=== PATIENT | female | born 1945 | race Caucasian/White ===

== ENCOUNTER → 2016-12-24 | Outpatient (CLI) | payer MEDICARE ==
[2016-12-24 10:23] LABS: CH 33.2; HCT 41.2 % (34.0-46.0); HDW 2.34; HGB 14.3 gm/dL (11.4-16.0); MCHC 34.7 g/dL (31.0-37.0); MCV 95.1 fL (80.0-100.0); RBC 4.33 m/uL (3.80-5.40); RDW 12.5 % (11.5-15.5); WBC 5.7 k/uL (3.8-10.6)
[2016-12-24 10:57] LABS: ALT 55 U/L (9-52); AST 40 U/L (14-36); Alkaline Phosphatase 68 U/L (38-126); Anion Gap 11 mmol/L; Blood Urea Nitrogen 23 mg/dL (7-17); Calcium 9.8 mg/dL (8.4-10.2); Carbon Dioxide 28 mmol/L (22-30); Chloride 101 mmol/L (98-107); Cholesterol 217 mg/dL (<200); Glucose 100 mg/dL (74-99); HDL Cholesterol 61 mg/dL (40-60); Non-African American GFR(MDRD) >60 (>60 ml/min/1.73 sqM); Potassium 4.3 mmol/L (3.5-5.1); Sodium 140 mmol/L (137-145); Total Bilirubin 0.9 mg/dL (0.2-1.3); Total Protein 6.9 g/dL (6.3-8.2); Triglycerides 217 mg/dL (<150)
== END | disposition home or self-care (01) ==
LOC: LABWHC1 09:51
PROVIDERS: ATTEND Internal Medicine
DX: Z00.00 Encounter for general adult medical examination without abnormal findings (principal); I10 Essential (primary) hypertension; E03.9 Hypothyroidism, unspecified; E78.00 Pure hypercholesterolemia, unspecified
CPT/HCPCS: 36415; 80053; 80061; 84439; 84443; 85027

== ENCOUNTER → 2017-01-08 | Outpatient (CLI) | payer MEDICARE ==
--- NOTE | 2017-01-08 16:06 | US ---
EXAMINATION TYPE: US thyroid st tissue head/neck DATE OF EXAM: 01/08/2017 COMPARISON: Ultrasound 12/31/2015 CLINICAL HISTORY: E03.9 Hypothyroidism Unspecified. Left thyroidectomy; c/o difficulty swallowing GLAND SIZE: Right Lobe: 3.7 x 1.6 x 1.0 cm Overall Parenchyma: homogenous Left Lobe: surgically removed Isthmus Thickness: 0.2 cm NODULES RIGHT: # of nodules measured on right: 3 largest of multiple 1. 0.4 X 0.4 x 0.1 cm hypoechoic mixed nodule at the upper pole with well-defined margins; interrup mo peripheral calcification. This nodule is wider than tall and shows no intranodular vascularity. Prior size: 0.4 x 0.3 x 0.4 cm 2. 0.2 X 0.3 x 0.1 cm hypoechoic cystic nodule at the mid pole with well-defined margins. This nodu le is wider than tall and shows no intranodular vascularity. Prior size: 0.3 x 0.2 x 0.3 cm 3. 0.7 X 0.8 x 0.4 cm hypoechoic mixed nodule at the lower pole with well-defined margins; present w ith microcalcifications. This nodule is wider than tall and shows no intranodular vascularity. Prior size: 0.6 x 0.4 x 0.9 cm LEFT: # of nodules measured on left: 0 post thyroidectomy ISTHMUS: # of nodules measured in the isthmus: 0 Bilateral neck scanned, no evidence of lymphadenopathy. IMPRESSION: 1. Stable subcentimeter right lobe thyroid nodules. 2. Status post left thyroid lobectomy
== END | disposition home or self-care (01) ==
LOC: RADUSWWP 14:54
PROVIDERS: ATTEND Internal Medicine Endocrinology, Diabetes & Metabolism
DX: E04.2 Nontoxic multinodular goiter (principal); E89.0 Postprocedural hypothyroidism
CPT/HCPCS: 76536

== ENCOUNTER → 2017-12-17 | Outpatient (CLI) | payer MEDICARE ==
[2017-12-17 12:20] LABS: T4, Free (Free Thyroxine) 1.74 ng/dL (0.78-2.19)
== END | disposition home or self-care (01) ==
LOC: LABWHC1 11:39
PROVIDERS: ATTEND Internal Medicine Endocrinology, Diabetes & Metabolism
DX: E03.9 Hypothyroidism, unspecified (principal)
CPT/HCPCS: 36415; 84439; 84443

== ENCOUNTER → 2022-01-30 | Outpatient (CLI) | payer MEDICARE ==
--- NOTE | 2022-01-30 12:31 | CT ---
EXAMINATION TYPE: CT chest wo con CT DLP: 457.2 mGycm, Automated exposure control for dose reduction was used. DATE OF EXAM: 01/30/2022 12:21 PM COMPARISON: None CLINICAL INDICATION:Female, 77 years old with history of J45.50 SEVERE PERSISTENT ASTHMA; TECHNIQUE: Multiple axial images were obtained through the chest. Contrast used: none. Oral contrast used: none. FINDINGS: LUNGS/ PLEURA: Mild to moderate centrilobular emphysema changes. No focal consolidation, pneumothorax or pleural effusion. AIRWAY: Patent and unremarkable. HEART: Size within normal limits. Moderate to severe coronary artery atherosclerosis. MEDIASTINUM: No gross evidence of adenopathy. Small hiatal hernia. VASCULATURE: No aortic aneurysm. MUSCULOSKELETAL: Severe multilevel disc degeneration changes are present throughout the spine with di sc space narrowing and mild scoliosis changes. SOFT TISSUES/LYMPH NODES: Unremarkable. LOWER NECK: No significant findings. UPPER ABDOMEN: Cholecystectomy clips. IMPRESSION: 1. Mild to moderate COPD changes. 2. Moderate to severe coronary artery atherosclerosis. 3. Moderate to severe multilevel disc degeneration changes.
== END | disposition home or self-care (01) ==
LOC: RADCTMAIN 11:40
PROVIDERS: ATTEND Internal Medicine Pulmonary Disease
DX: J45.50 Severe persistent asthma, uncomplicated (principal); I10 Essential (primary) hypertension; F41.1 Generalized anxiety disorder; E03.9 Hypothyroidism, unspecified; J44.9 Chronic obstructive pulmonary disease, unspecified; I25.10 Atherosclerotic heart disease of native coronary artery without angina pectoris; Z68.37 Body mass index [BMI] 37.0-37.9, adult
CPT/HCPCS: 71250

== ENCOUNTER 2024-04-30 14:23 | Emergency (ER) | payer MEDICARE ==
[2024-04-30 15:05] LABS: Basophils # (A) 0.1 k/uL (0-0.2); Basophils % (A) 1 %; Eosinophils # (A) 0.2 k/uL (0-0.7); Eosinophils % (A) 3 %; HCT 43.4 % (34.0-46.0); HGB 14.4 gm/dL (11.4-16.0); Lymphocytes # (A) 1.5 k/uL (1.0-4.8); Lymphocytes % (A) 20 %; MCH 32.9 pg (25.0-35.0); MCHC 33.3 g/dL (31.0-37.0); Mean Platelet Volume 7.1; Monocytes # (A) 0.5 k/uL (0-1.0); Monocytes % (A) 6 %; Neutrophils # (A) 5.2 k/uL (1.3-7.7); Neutrophils % (A) 67 %; Platelet Count 279 k/uL (150-450); RBC 4.38 m/uL (3.80-5.40); RDW 12.1 % (11.5-15.5); WBC 7.8 k/uL (3.8-10.6)
[2024-04-30] MEDS: DIPH,PERTUS(ACELL)TETVAC-LF 0.5 ML VIAL IM ONE (15:12)
[2024-04-30] MEDS: LIDOCAINE/EPINEPHR/TETRACAINE 5 ML BOTTLE TOPICAL ONE (15:12)
[2024-04-30 15:16] LABS: ALT 26 U/L (4-34); AST 31 U/L (14-36); African American GFR (CKD) 64 (>60 ml/min/1.73 sqM); Albumin 4.3 g/dL (3.5-5.0); Alkaline Phosphatase 70 U/L (38-126); Anion Gap 8 mmol/L; Blood Urea Nitrogen 23 mg/dL (7-17); Calcium 9.5 mg/dL (8.4-10.2); Carbon Dioxide 30 mmol/L (22-30); Chloride 94 mmol/L (98-107); Glucose 105 mg/dL (74-99); Non-African American GFR(CKD) 56 (>60 ml/min/1.73 sqM); Potassium 3.9 mmol/L (3.5-5.1); Sodium 132 mmol/L (137-145); Total Bilirubin 0.8 mg/dL (0.2-1.3); Total Protein 6.7 g/dL (6.3-8.2)
[2024-04-30 15:17] LABS: Partial Thromboplastin Time 23.4 sec (22.0-30.0); Prothrombin Time 11.2 sec (10.0-12.5)
--- NOTE | 2024-04-30 16:08 | CT ---
EXAMINATION TYPE: CT brain cspine wo con, CT facial bones wo con CT DLP: Combined DLP of 1093.7 mGycm, Automated exposure control for dose reduction was used. DATE OF EXAM: 04/30/2024 3:50 PM COMPARISON: None. CLINICAL INDICATION: Female, 79 years old with history of fall, pain; Pt presents from urgent care po st fall, from standing position no blood thinners, no LOC. fall happened at 1130 bruising noted. TECHNIQUE: Brain: Multiple axial CT images of the brain were obtained without IV contrast. Cspine: Axial CT images from the skull base to the inferior aspect of T2 we obtained without intraven ous contrast. Coronal and sagittal reformatted images were also reviewed. Facial: Axial imaging of the facial structures with sagittal and coronal reformats. FINDINGS: Brain: Extra-axial spaces: No abnormal extra-axial fluid collections. Ventricular system: Dilatation in proportion to cerebral atrophy. Cerebral parenchyma: Cerebral atrophy. No acute intraparenchymal hemorrhage or mass effect. The yoon -white junction is well differentiated. Scattered hypoattenuating areas are seen within the white mat ter. Cerebellum: Unremarkable. Mass effect: No evidence of midline shift. Intracranial vasculature: Atherosclerotic calcifications of the intracranial vessels. Soft tissues: Normal. Calvarium/osseous structures: No depressed skull fracture. Paranasal sinuses and mastoid air cells: Clear. Visualized orbits: Bilateral aphakia Cervical spine: Fracture: None. Osseous structures: Multilevel degenerative disc disease changes with endplate spurring and disc oste ophyte complex's. Vertebral alignment: Within normal limits. Spinal canal/Neural Foramina: No evidence of significant spinal canal narrowing. No evidence for sign ificant neural foraminal stenosis. Neck soft tissues: Prevertebral soft tissues are within normal limits. Other: The airway is patent. The lung apices are clear. Facial: Left lateral facial laceration with subcutaneous edema. No evidence for fracture. The orbits and globes are intact. The remainder the soft tissues are intact. Minimal paranasal sinus mucosal thi ckening. Mastoid air cells and middle ears are intact. IMPRESSION: 1. Left lateral facial laceration with subcutaneous edema. No evidence for fracture. 2. No acute intracranial process. 3. Nonspecific white matter changes, likely secondary to chronic small vessel ischemic disease. 4. No evidence of cervical spine fracture. 5. Mild/moderate multilevel degenerative disc disease. [facility], , 04/30/2024 4:06 PM
--- NOTE | 2024-04-30 16:41 | XR ---
EXAMINATION TYPE: XR pelvis AP view DATE OF EXAM: 04/30/2024 3:57 PM CLINICAL INDICATION: Female, 79 years old with history of fall, pain; [facility] COMPARISON: None TECHNIQUE: XR pelvis AP view, examined in a single projection. FINDINGS: There is no evidence of fracture or dislocation. There is no soft tissue abnormality. No a bnormal calcifications are present. The spine appears intact. The hips appear intact. Osteophyte form ation of the superior acetabulum bilaterally with mild joint space narrowing. IMPRESSION: No acute osseous pathology. Mild degeneration changes of the hip. [facility], , 04/30/2024 4:39 PM
--- NOTE | 2024-04-30 16:49 | XR ---
EXAMINATION TYPE: XR chest 1V portable DATE OF EXAM: 04/30/2024 3:57 PM CLINICAL INDICATION: Female, 79 years old with history of fall, pain; [facility] COMPARISON: Chest radiographs from 10/03/2015 TECHNIQUE: XR chest 1V portable Frontal view of the chest. FINDINGS: Lungs/Pleura: There is no evidence of pleural effusion, focal consolidation, or pneumothorax. Pulmonary vascularity: Unremarkable. Heart/mediastinum: Cardiomediastinal silhouette is unremarkable. Musculoskeletal: No acute osseous pathology. Other findings: None IMPRESSION: No acute cardiopulmonary disease/process. [facility], , 04/30/2024 4:46 PM
--- NOTE | 2024-04-30 16:51 | ED ---
General Adult HPI <Kiran Funes - Last Filed: 04/30/24 16:52> - General Source: patient, EMS, RN notes reviewed, old records reviewed Mode of arrival: EMS Limitations: no limitations <Keyshawn Valdez - Last Filed: 04/30/24 21:22> - General Chief complaint: Fall Stated complaint: FALL Time Seen by Provider: 04/30/24 14:27 - History of Present Illness Initial comments: Patient is a an 79-year-old female who presents emergency department after a fall. Patient was walking in a parking lot when she stepped on uneven ground and tripped and fell forward. She landed on her elbows as well as on her face. Has a laceration to her left forehead as well as some bruising around the left eye. Originally presented to urgent care who transferred her here for CT imaging the head. She denies any significant headache. Does endorse the laceration above the left eye. Denies any blurry vision. Has no other obvious injuries. Presents for further evaluation at this time. Is not on blood thinners. Denies loss of consciousness. (Keyshawn Valdez) - Related Data Allergies Allergy/AdvReac Type Severity Reaction Status Date / Time No Known Allergies Allergy Verified 04/30/24 14:30 Review of Systems ROS Other: All systems not noted in ROS Statement are negative. <Kiran Funes - Last Filed: 04/30/24 16:52> ROS Other: All systems not noted in ROS Statement are negative. <Keyshawn Valdez - Last Filed: 04/30/24 21:22> ROS Statement: Those systems with pertinent positive or pertinent negative responses have been documented in the HPI. Review of Systems: CONST: Denies fever EYES: Denies blurry vision ENT: Denies nasal congestion C/V: Denies Chest pain RESP: Denies shortness of breath GI: Denies abdominal pain : Denies dysuria SKIN: Endorses forehead laceration MSK: Denies joint pain. NEURO: Denies headache (Keyshawn Valdez) Past Medical History Past Medical History: Asthma, Cancer, Hyperlipidemia, Hypertension, Thyroid Disorder History of Any Multi-Drug Resistant Organisms: None Reported Past Surgical History: Hysterectomy Additional Past Surgical History / Comment(s): thyroidectomy, skin cancer Past Psychological History: No Psychological Hx Reported Smoking Status: Former smoker Past Alcohol Use History: Rare Past Drug Use History: None Reported <Keyshawn Valdez - Last Filed: 04/30/24 21:22> General Exam Limitations: no limitations <Keyshawn Valdez - Last Filed: 04/30/24 21:22> - General Exam Comments Initial Comments: General: Appears in no acute distress. HEAD: Negative Lyle sign. Negative raccoon eyes. Patient does have some bruising lateral to the left eye as well as a 4 laceration. EYES: PERRLA, EOMI, conjunctiva normal, no discharge. Are 3 mm and equal bilaterally. ENT: Hearing grossly intact, normal oropharynx. RESPIRATORY: Clear breath sounds bilaterally. No wheezes, rales, or rhonchi. C/V: Regular rate and rhythm. S1 and S2 auscultated, no edema, peripheral pulses 2+ and intact throughout ABD: Abd is soft, nontender, nondistended EXT: Normal range of motion, no obvious deformity pelvis stable. No midline cervical, thoracic, lumbar spine tenderness to palpation. SKIN: No rashes or lesions observed on exposed skin. NEURO: Alert and oriented x 4. Cranial nerves II-XII intact. No focal sensory or strength deficits. GCS of 15. (Keyshawn Valdez) Course Vital Signs 04/30/24 04/30/24 14:30 18:16 Temperature 97.4 F L 97.9 F Pulse Rate 79 65 Respiratory 16 18 Rate Blood Pressure 164/87 185/75 O2 Sat by Pulse 96 98 Oximetry Procedures - Laceration Laceration #1 Consent Obtained: verbal consent Indication: laceration Site: face Size (cm): 2 Description: irregular Depth: simple, single layer Anesthetic Used: lidocaine 1%, without epi Anesthesia Technique: local infiltration Type of Sutures: nylon Size of Sutures: 5-0 Number of Sutures: 4 Technique: simple, interrupted Patient Tolerated Procedure: well <Kiran Funes - Last Filed: 04/30/24 16:52> Medical Decision Making - Lab Data Result diagrams: 04/30/24 14:53 04/30/24 14:53 <Kiran Funes - Last Filed: 04/30/24 16:52> - Lab Data Result diagrams: 04/30/24 14:53 04/30/24 14:53 - EKG Data -: EKG Interpreted by Me <Keyshawn Valdez - Last Filed: 04/30/24 21:22> - Medical Decision Making Was pt. sent in by a medical professional or institution ([facility], INFO PRINT PRESS OPERATOR, urgent care, hospital, or care home...) When possible be specific @ -No Did you speak to anyone other than the patient for history (EMS, parent, family, police, friend...)? What history was obtained from this source @ -No Did you review nursing and triage notes (agree or disagree)? Why? @ -I reviewed and agree with nursing and triage notes Were old charts reviewed (outside hosp., previous admission, EMS record, old EKG, old radiological studies, urgent care reports/EKG's, care home records)? Report findings @ -No old charts were reviewed Differential Diagnosis (chest pain, altered mental status, abdominal pain women, abdominal pain men, vaginal bleeding, weakness, fever, dyspnea, syncope, headache, dizziness, GI bleed, back pain, seizure, CVA, palpatations, mental health, musculoskeletal)? @ -Differential Musculoskeletal Muscular strain, contusion, ligament sprain, fracture, arthritis, septic arthritis, bursitis, cellulitis, muscle spasm, nerve compression, DVT, arterial occlusion, herpes zoster, electrolyte abnormality, tumor.... This is not meant to be in all inclusive list EKG interpreted by me (3pts min.). @ -As above X-rays interpreted by me (1pt min.). @ -Chest and pelvis x-ray negative for any obvious acute traumatic injury CT interpreted by me (1pt min.). @ -CT brain, cervical spine negative for any obvious acute intracranial process or injury. CT facial bones does show the left lateral facial laceration with some subcutaneous edema but no evidence of fracture. U/S interpreted by me (1pt. min.). @ -None done What testing was considered but not performed or refused? (CT, X-rays, U/S, labs)? Why? @ -None What meds were considered but not given or refused? Why? @ -Offered analgesia medications which were declined. Did you discuss the management of the patient with other professionals (professionals i.e. [facility], INFO PRINT PRESS OPERATOR, lab, RT, psych nurse, manager social responsibility, pipe inspector, teacher, property disposal officer, caser in)? Give summary @ -No Was smoking cessation discussed for >3mins.? @ -No Was critical care preformed (if so, how long)? @ -No Were there social determinants of health that impacted care today? How? (Homelessness, low income, unemployed, alcoholism, drug addiction, transportation, low edu. Level, literacy, decrease access to med. care, [facility], rehab)? @ -No Was there de-escalation of care discussed even if they declined (Discuss DNR or withdrawal of care, Hospice)? DNR status @ -No What co-morbidities impacted this encounter? (DM, HTN, Smoking, COPD, CAD, Cancer, CVA, ARF, Chemo, Hep., AIDS, mental health diagnosis, sleep apnea, morbid obesity)? @ -None Was patient admitted / discharged? Hospital course, mention meds given and route, prescriptions, significant lab abnormalities, going to OR and other pe rtinent info. @ -Patient presents for a fall with no loss of consciousness not on blood thinners. Was transferred to emergent care for CT imaging the brain. We will obtain CT imaging of the head, neck, face as well as chest and pelvis x-ray basic labs. Patient in agreement this plan. Vital signs within acceptable limits. Laceration will be closed by assisted midlevel provider. Tetanus boost er will be applied as well as patient will receive a dose of Kefzol and let gel will be placed on the wound. Imaging negative for any obvious traumatic injury. Laboratory studies unremarkable. EKG unremarkable. After the patient at this time. She will be discharged home. She was in agreement this plan. Strict return precautions discussed. I instructed the patient to follow up with their PCP in the next 1-3 days. I explained that the patient should return to the emergency department if they experience any worsening symptoms. Strict return precautions were discussed with the patient. The patient expressed understanding of these instructions. I answered all questions that the patient had. The patient was discharged home in good condition with their prescriptions and follow up information. Undiagnosed new problem with uncertain prognosis? @ -No Drug Therapy requiring intensive monitoring for toxicity (Heparin, Nitro, Insulin, Cardizem)? @ -No Were any procedures done? @ -No Diagnosis/symptom? @ -Fall, forehead laceration Acute, or Chronic, or Acute on Chronic? @ -Acute Uncomplicated (without systemic symptoms) or Complicated (systemic symptoms)? @ -Uncomplicated Side effects of treatment? @ -No Exacerbation, Progression, or Severe Exacerbation? @ -No Poses a threat to life or bodily function? How? (Chest pain, [place], [place], pneumonia, PE, COPD, DKA, ARF, appy, cholecystitis, CVA, Diverticulitis, Homicidal, Suicidal, threat to staff... and all critical care pts) @ -Unlikely (Keyshawn Valdez) - Lab Data Lab Results 04/30/24 04/30/24 04/30/24 Range/Units 14:53 14:53 14:53 WBC 7.8 (3.8-10.6) k/uL RBC 4.38 (3.80-5.40) m/uL Hgb 14.4 (11.4-16.0) gm/dL Hct 43.4 (34.0-46.0) % MCV 99.0 (80.0-100.0) fL MCH 32.9 (25.0-35.0) pg MCHC 33.3 (31.0-37.0) g/dL RDW 12.1 (11.5-15.5) % Plt Count 279 (150-450) k/uL MPV 7.1 Neutrophils % 67 % Lymphocytes % 20 % Monocytes % 6 % Eosinophils % 3 % Basophils % 1 % Neutrophils # 5.2 (1.3-7.7) k/uL Lymphocytes # 1.5 (1.0-4.8) k/uL Monocytes # 0.5 (0-1.0) k/uL Eosinophils # 0.2 (0-0.7) k/uL Basophils # 0.1 (0-0.2) k/uL PT 11.2 (10.0-12.5) sec INR 1.0 (<1.2) APTT 23.4 (22.0-30.0) sec Sodium 132 L (137-145) mmol/L Potassium 3.9 (3.5-5.1) mmol/L Chloride 94 L (98-107) mmol/L Carbon Dioxide 30 (22-30) mmol/L Anion Gap 8 mmol/L BUN 23 H (7-17) mg/dL Creatinine 0.97 (0.52-1.04) mg/dL Est GFR (CKD-EPI)AfAm 64 (>60 ml/min/1.73 sqM) Est GFR (CKD-EPI)NonAf 56 (>60 ml/min/1.73 sqM) Glucose 105 H (74-99) mg/dL Calcium 9.5 (8.4-10.2) mg/dL Total Bilirubin 0.8 (0.2-1.3) mg/dL AST 31 (14-36) U/L ALT 26 (4-34) U/L Alkaline Phosphatase 70 (38-126) U/L Total Protein 6.7 (6.3-8.2) g/dL Albumin 4.3 (3.5-5.0) g/dL - EKG Data EKG Comments: 12-lead Electrocardiogram Interpretation Note EKG was reviewed and interpreted by myself. 12-lead ECG performed at 1523 is interpreted by me as revealing normal sinus rhythm at a rate of 73 beats per minute. [place] is normal. [place] interval is 160 ms, QRS duration is 90 ms, QTc is 451 ms.. There were no ST or T wave abnormalities to suggest myocardial ischemia or injury. R wave progression across the precordium was satisfactory. By my interpretation this EKG is non-diagnostic for acute ischemia. (Keyshawn Valdez) Disposition <Kiran Funes - Last Filed: 04/30/24 16:52> Is patient prescribed a controlled substance at d/c from ED?: No Time of Disposition: 17:20 <Keyshawn Valdez - Last Filed: 04/30/24 21:22> Clinical Impression: Fall, Laceration of forehead Disposition: HOME SELF-CARE Condition: Good Instructions (If sedation given, give patient instructions): Care For Your Stitches (DC), Concussion (ED), Fall Prevention for Older Adults (ED), Stitches Removal (ED) Referrals: Pema Grijalva MD [Primary Care Provider] - 1-2 days
[2024-04-30 18:22] VITALS: BP 185/75; PULSE 65; RESP 18; TEMP 97.9
== END 2024-04-30 18:22 | disposition home or self-care (01) ==
LOC: EC 14:23
CPT/HCPCS: 12011; 36415; 70450; 70486; 71045; 72125; 72170; 80053; 85025; 85610; 85730; 90471; 90715; 93005; 96365; 99284

== ENCOUNTER 2024-05-06 17:41 | Emergency (ER) | payer MEDICARE ==
[2024-05-06 17:54] VITALS: RESP 18; TEMP 97.4
--- NOTE | 2024-05-06 18:08 | ED ---
Fall HPI - General Source: patient, RN notes reviewed Mode of arrival: wheelchair <Irma Berger - Last Filed: 05/06/24 18:06> - General Source: RN notes reviewed <Lourdes Truong - Last Filed: 05/06/24 23:08> - General Chief Complaint: Fall Stated Complaint: Body pain, previous fall Time Seen by Provider: 05/06/24 17:55 - History of Present Illness Initial Comments: Quick [id number] female presents to the emergency department for reevaluation of residual pain after fall last week. Patient is complaining of left knee, left hip, left-sided rib pain. (Irma Berger) 79-year-old female presenting to the ER for residual pain after fall last week. Reports she had a mechanical fall outside of her house last week where she fell onto her left side. She was seen for this last week where they scanned her head and neck. She reports that over the course of the week she has had increasing pain in her left ribs, left hip, and left knee. She is able to ambulate. Also had sutures to left forehead 8 days ago that she would like removed today. (Lourdes Truong) - Related Data Previous Rx's Medication Instructions Recorded Lidocaine 5% Patch [Lidoderm 5% 1 patch TOPICAL DAILY 7 Days #7 05/06/24 Patch] patch Allergies Allergy/AdvReac Type Severity Reaction Status Date / Time No Known Allergies Allergy Verified 04/30/24 14:30 Review of Systems ROS Other: All systems not noted in ROS Statement are negative. <Irma Berger - Last Filed: 05/06/24 18:06> ROS Other: All systems not noted in ROS Statement are negative. <Lourdes Truong - Last Filed: 05/06/24 23:08> ROS Statement: Those systems with pertinent positive or pertinent negative responses have been documented in the HPI. Past Medical History Past Medical History: Asthma, Cancer, Hyperlipidemia, Hypertension, Thyroid Disorder History of Any Multi-Drug Resistant Organisms: None Reported Past Surgical History: Hysterectomy Additional Past Surgical History / Comment(s): thyroidectomy, skin cancer Past Psychological History: No Psychological Hx Reported Smoking Status: Former smoker Past Alcohol Use History: Rare Past Drug Use History: None Reported <Irma Berger - Last Filed: 05/06/24 18:06> General Exam Limitations: no limitations <Irma Berger - Last Filed: 05/06/24 18:06> General appearance: alert, in no apparent distress Head exam: Present: atraumatic, normocephalic, normal inspection Eye exam: Present: normal appearance, PERRL, EOMI. Absent: scleral icterus, conjunctival injection, periorbital swelling Respiratory exam: Present: normal lung sounds bilaterally. Absent: respiratory distress, wheezes, rales, rhonchi, stridor Cardiovascular Exam: Present: regular rate, normal rhythm, normal heart sounds. Absent: systolic murmur, diastolic murmur, rubs, gallop, clicks Extremities exam: Present: normal inspection, full ROM, normal capillary refill. Absent: tenderness, pedal edema, joint swelling, calf tenderness Neurological exam: Present: alert, oriented X3 Psychiatric exam: Present: normal affect, normal mood Skin exam: Present: warm, dry, intact, normal color. Absent: rash <Lorudes Truong - Last Filed: 05/06/24 23:08> - General Exam Comments Initial Comments: Visual Physical Exam Vital signs reviewed General: Well-appearing, nontoxic, no acute distress. Head: Normocephalic, atraumatic Eyes: PERRLA, EOMI ENT: Airway patent Chest: Nonlabored breathing Skin: No visual rash, normal skin tone Neuro: Alert and oriented 3 Musculoskeletal: No gross abnormalities (Irma Berger) Course Vital Signs 05/06/24 05/06/24 17:48 20:23 Temperature 97.4 F L Pulse Rate 78 77 Respiratory 18 18 Rate Blood Pressure 167/91 166/83 O2 Sat by Pulse 96 97 Oximetry Procedures <Lourdes Truong - Last Filed: 05/06/24 23:08> - Procedures Initial comment: 4 sutures removed from left forehead with no complications (Lourdes Truong) Medical Decision Making <Irma Berger - Last Filed: 05/06/24 18:06> <Lourdes Truong - Last Filed: 05/06/24 23:08> - Medical Decision Making I completed the quick note portion of this chart signed Irma Berger PA-C (Irma Berger) Was pt. sent in by a medical professional or institution ([facility], DUMP ATTENDANT, urgent care, hospital, or [facility]...) When possible be specific @ -No Did you speak to anyone other than the patient for history (EMS, parent, family, police, friend...)? What history was obtained from this source @ -No Did you review nursing and triage notes (agree or disagree)? Why? @ -I reviewed and agree with nursing and triage notes Were old charts reviewed (outside hosp., previous admission, EMS record, old EKG, old radiological studies, urgent care reports/EKG's, [facility] records)? Report findings @ -No old charts were reviewed Differential Diagnosis (chest pain, altered mental status, abdominal pain women, abdominal pain men, vaginal bleeding, weakness, fever, dyspnea, syncope, headache, dizziness, GI bleed, back pain, seizure, CVA, palpatations, mental health, musculoskeletal)? @ -Differential Musculoskeletal Muscular strain, contusion, ligament sprain, fracture, arthritis, septic arthritis, bursitis, cellulitis, muscle spasm, nerve compression, DVT, arterial occlusion, herpes zoster, electrolyte abnormality, tumor.... This is not meant to be in all inclusive list EKG interpreted by me (3pts min.). @ -None X-rays interpreted by me (1pt min.). @ -X-ray left hip/pelvis osteopenia limiting assessment, no displaced fracture seen, degenerative changes lower lumbar spine, left knee x-ray reveals uncomplicated left knee total arthroplasty, anterior soft tissue swelling, left ribs reveals chronic changes, no acute process, no displaced fracture seen CT interpreted by me (1pt min.). @ -None done U/S interpreted by me (1pt. min.). @ -None done What testing was considered but not performed or refused? (CT, X-rays, U/S, labs)? Why? @ -None What meds were considered but not given or refused? Why? @ -None Did you discuss the management of the patient with other professionals (professionals i.e. , PA, DUMP ATTENDANT, lab, RT, psych nurse, social science professor, library services dean, teacher, sailing officer, pillowcase maker)? Give summary @ -No Was smoking cessation discussed for >3mins.? @ -No Was critical care preformed (if so, how long)? @ -No Were there social determinants of health that impacted care today? How? (Homelessness, low income, unemployed, alcoholism, drug addiction, transportation, low edu. Level, literacy, decrease access to med. care, retirement, rehab)? @ -No Was there de-escalation of care discussed even if they declined (Discuss DNR or withdrawal of care, Hospice)? DNR status @ -No What co-morbidities impacted this encounter? (DM, HTN, Smoking, COPD, CAD, Cancer, CVA, ARF, Chemo, Hep., AIDS, mental health diagnosis, sleep apnea, morbid obesity)? @ -None Was patient admitted / discharged? Hospital course, mention meds given and route, prescriptions, significant lab abnormalities, going to OR and other pertinent info. @ -Discharge. This is a 79-year-old female presenting for fall x 1 week ago with residual left-sided pain. Endorsing pain in the left ribs, left knee, and left hip. She is able to ambulate. Neurovascularly intact. Patient is provided with analgesics. X-ray pelvis/left hip, left knee, and left ribs revealed no acute process. Discussed results with patient. There does not appear to be emergent etiology causing symptoms, symptoms likely caused by contusions/muscle strains from fall. Supportive care discussed. 4 sutures removed from left forehead. Prescribed lidocaine patches. Case was discussed with my ED attending Dr. Ag. Patient discharged in stable condition. Undiagnosed new problem with uncertain prognosis? @ -No Drug Therapy requiring intensive monitoring for toxicity (Heparin, Nitro, Insulin, Cardizem)? @ -No Were any procedures done? @ -4 sutures removed from left forehead Diagnosis/symptom? @ -Fall Acute, or Chronic, or Acute on Chronic? @ -Acute Uncomplicated (without systemic symptoms) or Complicated (systemic symptoms)? @ -Uncomplicated Side effects of treatment? @ -No Exacerbation, Progression, or Severe Exacerbation? @ -No Poses a threat to life or bodily function? How? (Chest pain, USA, PA, pneumonia, PE, COPD, DKA, ARF, appy, cholecystitis, CVA, Diverticulitis, Homicidal, Suicidal, threat to staff... and all critical care pts) @ -No (Lourdes Truong) Disposition <Irma Berger - Last Filed: 05/06/24 18:06> Is patient prescribed a controlled substance at d/c from ED?: No Time of Disposition: 20:12 <Lourdes Truong - Last Filed: 05/06/24 23:08> Clinical Impression: Fall Disposition: HOME SELF-CARE Condition: Stable Instructions (If sedation given, give patient instructions): Fall Prevention for Older Adults (ED) Additional Instructions: Use lidocaine patches as directed for pain. Please return to the Emergency Department if symptoms worsen or any other concerns. Prescriptions: Lidocaine 5% Patch [Lidoderm 5% Patch] 1 patch TOPICAL DAILY 7 Days #7 patch Referrals: Peam Grijalva MD [Primary Care Provider] - 1-2 days
--- NOTE | 2024-05-06 18:36 | XR ---
EXAMINATION TYPE: XR ribs LT w pa chest xray, 5 views DATE OF EXAM: 05/06/2024 Comparison: 04/30/2024 Clinical History: 79-year-old female fall, pain Findings: Heart normal size. Mild tortuosity/ectasia of thoracic aorta. Mild interstitial prominence in the chr onic appearance. No consolidation or pleural effusion seen. No displaced left rib fractures seen. Degenerative change lumbar spine. Impression: 1. Chronic changes. No definite acute cardiopulmonary process. 2. No displaced fracture seen. [facility], , 05/06/2024 6:34 PM
--- NOTE | 2024-05-06 18:40 | XR ---
EXAMINATION TYPE: XR Hip 2 views LT and AP Pelvis, XR knee complete 3 views LT DATE OF EXAM: 05/06/2024 Comparison: Pelvis 04/30/2024 Clinical History: 79-year-old female fall, pain Findings: Pelvis and left hip: Degenerative change visualized lower lumbar spine. Mild degenerative changes side joints. There is os teopenia limiting assessment. Mild marginal spurring at the hips with relative preservation of hip lazaro int space. No acute fracture, subluxation, or dislocation is seen. Left knee: Osteopenia. There is left total knee arthroplasty. Both distal femoral and proximal tibial components of prosthesis are well seated without periprosthetic fracture. Alignment grossly anatomic. Prominent anterior soft tissue swelling noted. Impression: 1. Pelvis and left hip: Osteopenia limiting assessment. No displaced fracture seen. Degenerative caicedo ge lower lumbar spine. 2. Left knee: Uncomplicated left total knee arthroplasty. Anterior soft tissue swelling. [facility], , 05/06/2024 6:38 PM
[2024-05-06] MEDS: KETOROLAC 15 MG/ML 1 ML VIAL IM STA (19:50)
[2024-05-06] MEDS: LIDOCAINE 4% PATCH TOPICAL ONE (19:53)
[2024-05-06 20:24] VITALS: BP 166/83; PULSE 77
== END 2024-05-06 20:24 | disposition home or self-care (01) ==
LOC: EC 17:41
CPT/HCPCS: 73502; 96372; 99283

== ENCOUNTER → 2024-06-10 | Outpatient (CLI) | payer MEDICARE ==
[2024-06-10 10:00] LABS: African American GFR (CKD) 69 (>60 ml/min/1.73 sqM); Blood Urea Nitrogen 19 mg/dL (7-17); Non-African American GFR(CKD) 60 (>60 ml/min/1.73 sqM)
--- NOTE | 2024-06-10 11:13 | CT ---
EXAMINATION TYPE: CT abdomen wo/w con DATE OF EXAM: 06/10/2024 COMPARISON: None CLINICAL INDICATION: Female, 79 years old with history of R10.9 UNSPECIFIED ABDOMINAL PAIN; PHH, Uppe r abdominal pain x 3 months TECHNIQUE: Performed with Oral Contrast and without and with IV Contrast, patient injected with 80 mL of Isovue 300. CT DLP: 1714.[address] CTDI: mGy Automated exposure control for dose reduction was used. FINDINGS: The lung bases are clear. There is surgical absence of the gallbladder. There is no biliary ductal dilatation. There is no focal mass or organomegaly involving the liver, pancreas, spleen or adrenal glands. There is no solid renal mass or hydronephrosis and there is homogeneous contrast enhancement of the r enal parenchyma. The caliber the abdominal aorta is normal is no retroperitoneal adenopathy or hemorr fiorella. The bowel loops are normal in caliber and there is no evidence of dilatation or obstruction. No infla mmatory changes are identified in the bowel wall or mesentery. There is no free intraperitoneal air or fluid. No pelvic mass, free fluid, abscess or adenopathy. The osseous structures and soft tissues are intact. IMPRESSION: No significant abnormality seen. [facility], , 06/10/2024 11:10 AM
== END | disposition home or self-care (01) ==
LOC: RADCTMAIN 09:18
PROVIDERS: ATTEND Internal Medicine
DX: R10.9 Unspecified abdominal pain (principal); Z90.49 Acquired absence of other specified parts of digestive tract
CPT/HCPCS: 82565; 84520; 74170; 36415; Q9967

== ENCOUNTER → 2024-09-02 | Day surgery (SDC) | payer MEDICARE ==
[2024-08-31 13:27] VITALS: BMI 37.5
[~2024-09-02] MED LIST: LACTATED RINGERS 1,000 ML IV SCH; LIDOCAINE 1% INJ 10MG/ML (20 ML MDV) ONE; PROPOFOL 10 MG/ML 20 ML VIAL IV ONE
[2024-09-02] MEDS: IV FLUID CONTINUATION 1,000 ML IV ONE ×2 (07:35→08:16)
[2024-09-02 07:49] VITALS: RESP 16; TEMP 98.4
--- NOTE | 2024-09-02 08:16 | P.PCN ---
Date of Procedure: 09/02/24 Procedure(s) Performed: Brief history: Patient is a pleasant 79-year-old white female scheduled for an elective upper endoscopy as well as colonoscopy as a part of evaluation of abdominal pain, longstanding history of GERD change in bowel habits for the last several months duration. Procedure performed: Esophagogastroduodenoscopy biopsy Colonoscopy with snare polypectomy Preoperative diagnosis: Left-sided abdominal pain/history of GERD Change in bowel habits Anesthesia: MAC Procedure: After informed consent was obtained from the patient was brought into the endoscopy unit and IV sedation was administered by anesthesia under continuous monitoring. Initially upper endoscopy was done. The Olympus GF 160 video endoscope was inserted inserted into the mouth and esophagus intubated without any difficulty and was gradually advanced into the stomach and duodenum and carefully examined. The bulb of the duodenum appeared normal. The duodenal sweep there was a duodenal stricture identified which appeared benign with no ulcerations seen. Was not able not able to advance the scope through the stricture. The scope was then withdrawn into the stomach adequately insufflated with air and upon careful examination the antrum and body, mild mottling of the mucosa consistent gastritis and biopsies were done from this area. Mucosa of the cardia and fundus appeared normal. The scope was then withdrawn into the esophagus. The GE junction was located at 40 cm to the incisors. It appeared regular with no erythema erosions or ulcerations. Rest of the esophagus appeared normal. Patient tolerated the procedure well. At this time the patient continued to remain sedation. Initial digital rectal examination was normal. Olympus CF 160 video colonoscope was then inserted into the rectum and gradually advanced to the cecum without any difficulty. Careful examination was performed as the scope was gradually being withdrawn. The prep was excellent. The cecum, appeared normal. The ascending colon there was a 5 mm polyp removed by cold snare polypectomy. In the transverse colon there was a 3 mm and 5 mm polyp removed by cold snare polypectomy. In the descending colon there was a 2 mm and 7 mm polyp removed by cold snare polypectomy. Rest of the descending colon, sigmoid colon and rectum appeared normal. Retroflexion was performed in the rectum and grade 2 internal hemorrhoids were noted. Patient tolerated the procedure well. Impression: 1. 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 Colonoscopy revealed: 5 mm ascending colon polyp status post cold snare polypectomy 3 millimeter and 5 mm transverse colon polyp status post cold snare polypectomy 2 mm and 7 mm descending colon polyp status post snare polypectomy Grade 2 internal hemorrhoids Recommendations: Findings of this examination were discussed with the patient as well as family. She was advised to follow-up with the biopsy results. Follow-up in the office in 2 weeks.
[2024-09-02 08:22] VITALS: PULSE 73
[2024-09-02 08:37] VITALS: BP 167/78
== END ==
LOC: ORWHC2ENDO 07:19
PROVIDERS: ATTEND Internal Medicine Gastroenterology
DX: K29.50 Unspecified chronic gastritis without bleeding (principal); D12.3 Benign neoplasm of transverse colon; D12.4 Benign neoplasm of descending colon; K31.5 Obstruction of duodenum; K64.1 Second degree hemorrhoids
CPT/HCPCS: 45385; 43239; J2003; J2704; 88305